=== PATIENT | female | born 1970 | race Caucasian/White ===

== ENCOUNTER → 2018-04-21 | Outpatient (CLI) | payer MEDICAID ==
--- NOTE | 2018-04-21 19:55 | Diagnostic Imaging Report ---
INDICATION: Right axilla pain. EXAMINATION: Limited ultrasound right breast/chest. COMPARISON: There are no prior studies available for comparison. FINDINGS: By history, patient has had a bilateral mastectomy approximately three years ago. There is no discrete mass or abscess in the chest wall to account for the patient's pain. There are a few benign-appearing lymph nodes in this area. IMPRESSION: 1. There is no mass or acute abnormality to account for the patient's pain. 2. If clinical concern regarding an underlying abnormality persists, then CT of the chest would be recommended for further study. Dictated by: Dictated on workstation # [id number]
== END ==
LOC: RAD 14:09
PROVIDERS: ATTEND Nurse Practitioner Family
DX: M79.621 Pain in right upper arm (principal)

== ENCOUNTER → 2018-10-17 | Outpatient (CLI) | payer MEDICAID ==
--- NOTE | 2018-10-17 10:50 | Diagnostic Imaging Report ---
INDICATION: Left breast carcinoma, status post mastectomy. Patient reports new palpable lump in the left chest below the patient's scar. TECHNIQUE: Interrogation of the area of lump deep to the patient's scar at the mastectomy site was performed. FINDINGS: There is a hypoechoic mass just below the skin surface measuring approximately 9 mm x 5 mm x 6 mm. This does show some mild internal vascularity. There are two indeterminate lymph nodes in the left axilla with the largest measuring approximately 1.2 cm x 0.9 cm. No other abnormalities are seen. IMPRESSION: There is a 9 mm x 6 mm hypoechoic mass at the area of palpable abnormality in the left chest wall deep to the incision showing some internal vascularity. Recurrent breast carcinoma cannot be entirely excluded. Diagnostic mammography is recommended and will be performed today. ACR BI-RADS Category 0: Incomplete. (Needs additional imaging evaluation). Dictated by: Dictated on workstation # [id number]
--- NOTE | 2018-10-17 11:15 | Diagnostic Imaging Report ---
Indication: Palpable lump in the left breast as well as right breast pain. Patient's history of left breast carcinoma. Patient has had bilateral mastectomies. No prior imaging is available for comparison. Bilateral 2-D and 3-D diagnostic mammography was performed. Scattered fibroglandular densities are identified bilaterally. A BB marker was placed at the area of palpable abnormality in the left breast. There is a nodular density just deep to the BB marker, corresponding to a hypoechoic mass noted on ultrasound. No associated microcalcifications are seen. There are surgical clips in the right and left breast. No other masses or suspicious microcalcifications are seen. Axillae are unremarkable. IMPRESSION: BI-RADS 4 Nodule just deep to BB marker in the left breast corresponding to the palpable abnormality and sonographic abnormality. This is concerning. Possibility of recurrent breast neoplasm cannot be entirely excluded. Tissue sampling is recommended. Due to the very superficial nature of the lesion, excisional biopsy is recommended. Surgical consultation is recommended. ACR BI-RADS Category 4: Suspicious abnormality. Result letter will be mailed to the patient. Note: At least 10% of breast cancer is not imaged by mammography. Dictated by: Dictated on workstation # [id number]
== END ==
LOC: RAD 08:31
PROVIDERS: ATTEND Registered Nurse
DX: C50.912 Malignant neoplasm of unspecified site of left female breast (principal); N63.20 Unspecified lump in the left breast, unspecified quadrant; Z90.13 Acquired absence of bilateral breasts and nipples
CPT/HCPCS: 76641; 77066

== ENCOUNTER → 2019-07-04 | Outpatient (CLI) | payer MEDICARE, MEDICAID ==
--- NOTE | 2019-07-04 11:36 | Diagnostic Imaging Report ---
INDICATION: Screening for osteoporosis, possible postmenopausal state, family history of osteoporosis. COMPARISON: None available, baseline exam. FINDINGS: AP Spine L1-L4: [BMD (g/cm2): 0.864] [T-Score: -2.8] [Z-Score: -3.6] [BMD Previous: NA] [BMD % Change: NA] LT Hip Neck: [BMD (g/cm2): 0.993] [T-Score: -0.3] [Z-Score: -0.3] LT Hip Total: [BMD (g/cm2):1.187] [T-Score:1.4] [Z-Score: 1.1] [BMD Previous: NA] [BMD % Change: NA] RT Hip Neck: [BMD (g/cm2):0.968] [T-Score:-0.5] [Z-Score:-0.5] RT Hip Total: [BMD (g/cm2):1.163] [T-score:1.2] [Z-Score:0.9] [BMD Previous:NA] [BMD % Change:NA] *Indicates significant change from prior examination based on 95% confidence level. World Health Organization criteria for BMD interpretation classify patients as Normal (T-score at or above -1.0), Osteopenic (T-score between -1.0 and -2.5) or Osteoporotic (T-score at or below -2.5). LIMITATIONS AND MODIFICATION: None. FRACTURE RISK (FRAX SCORE): The ten year probability of (%): Major Osteoporotic Fracture: [NA] Hip Fracture: [NA] IMPRESSION: 1. Osteoporosis. 2. Baseline examination. 3. See below National Osteoporosis Foundation guidelines on when to potentially initiate pharmacologic therapy. Based on the National Osteoporosis Foundation Guidelines, pharmacologic treatment should be initiated in any of the following, unless clinical conditions suggest otherwise: * Any patient with prior fragility fracture of the hip or vertebrae. A spine fracture indicates 5X risk for subsequent spine fracture and 2X risk for subsequent hip fracture. * Osteoporosis (T-score <-2.5). * Postmenopausal women and men age 50 and older with low bone mass/osteopenia (T-score between -1.0 and -2.5) by DXA and 10-year major osteoporotic fracture greater than 20% or a 10-year probability of hip fracture greater than 3%. These fracture risks are supplied above in the FRAX score, if applicable. * Clinician judgement and/or patient preferences may indicate treatment for people with 10-year fracture probabilities above or below these levels. Dictated by: Dictated on workstation # [id number]
== END ==
LOC: RAD 09:56
PROVIDERS: ATTEND Registered Nurse
DX: Z13.820 Encounter for screening for osteoporosis (principal); M81.0 Age-related osteoporosis without current pathological fracture; Z82.62 Family history of osteoporosis
CPT/HCPCS: 77080